=== PATIENT | male | born 1980 | race Caucasian/White ===

== ENCOUNTER 2018-05-16 21:40 | Emergency (ER) | payer OTHER ==
--- NOTE | 2018-05-16 22:29 | RAD ---
RIGHT KNEE FOUR VIEWS: 05/16/18 HISTORY: 38-year-old male with history of right knee pain, felt a pop this afternoon. FINDINGS: No fracture, dislocation, or other significant acute osseous abnormality. IMPRESSION: Unremarkable right knee. POS: [facility]
== END 2018-05-16 23:06 | disposition home or self-care (01) ==
LOC: ERS 21:40
DX: S83.91XA Sprain of unspecified site of right knee, initial encounter (principal); X50.1XXA Overexertion from prolonged static or awkward postures, initial encounter